=== PATIENT | male | born 1960 | race Caucasian/White ===

== ENCOUNTER 2016-08-17 08:46 | Emergency (ER) | payer MEDICAID ==
[~2016-08-17] VITALS: Ht 165.1 cm; Wt 51.0 kg
[~2016-08-17 08:46] MED LIST: ASPI-664 PO; ATOR20TA38 PO; CARV3.1260 PO; CLOP75TA27 PO; FAMO-95 PO; LISI2.5T59 PO; NIT4 SL; ONDA4TAB35 PO; TRAM50TA2 PO
[2016-08-17 08:51] VITALS: Ht 165.1 cm; Wt 51.0 kg
[2016-08-17] MEDS ORDERED: KETOROLAC 30 MG INJ IM STA (08:59)
--- NOTE | 2016-08-17 09:47 | RADRPT ---
PROCEDURE: XR Lumbar Spine. CLINICAL INDICATION: Low back pain. TECHNIQUE: Three views of the lumbar spine are available for review COMPARISON: None available FINDINGS: There is straightening of the normal lumbar lordosis. Moderate severe, which compression fractures noted at the L1 vertebral body more pronounced anteriorly, which is age indeterminate. The remainin g osseous structures appear demineralized. There is very low grade depression of the superior endpl ate of L3, also age indeterminate. Endplate productive changes seen throughout the lumbar spine con sistent with spondylosis. Mild disk space narrowing is seen at L4-L5 and grade 1 degenerative anter olisthesis. Mild bilateral SI joint arthrosis. The paraspinal soft tissues are grossly within normal limits. Atherosclerotic vascular calcific IMPRESSION: 1. Age indeterminate, moderate to severe compression fracture of L1. 2. Mild multilevel degenerative disk disease most pronounced at L4-5 noting mild disk space narrowi ng and grade 1 degenerative anterolisthesis. RPTAT: PP .Adolph Degroot MD, MD Date Time Electronically viewed and signed by .Adolph Degroot MD, on 08/17/2016 09:47 .d/
--- NOTE | 2016-08-17 09:52 | ERD ---
ER Documentation Chief Complaint Date/Time DATE: 08/17/16 TIME: 09:48 Chief Complaint Complains of lower back pain after a fall HPI Patient is a 55-year-old male who states that 2 days ago he had a mechanical fall landing on his lower back and since then he has had lower back pain. Patient was walking down stairs when he slipped and landed on his lower back. Pain is mild to moderate throbbing nonradiating. He denies any numbness or tingling, or bowel or bladder incontinence. He has no urinary symptoms. He is ambulatory. He denies any head injury. He denies any preceding chest pain, dizziness, headache, or loss of balance. ROS All systems reviewed and are negative except as per history of present illness. Medications Home Meds Active Scripts Hydrocodone/Acetaminophen ([place] 5-325 Tablet) 1 Each Tablet, 1 TAB PO Q6H Y for PAIN, #20 TAB Prov:RAÚL ALBERT PA-C 08/17/16 Ibuprofen* (Motrin*) 600 Mg Tab, 600 MG PO Q6, #30 TAB Prov:RAÚL ALBERT PA-C 08/17/16 Famotidine* (Pepcid* AC) 20 Mg Tab, 20 MG PO BID for 30 Days, 6 Refills Prov:MOISES LITTLE S. 10/13/14 Aspirin* (Aspirin* EC) 81 Mg Tabec, 81 MG PO DAILY for 30 Days Prov:MOISES LITTLE S. 09/27/14 Nitroglycerin* (Nitrostat*) 25 Tab Subl, 1 TAB SL Q5M Y for CHEST PAIN for 30 Days Prov:MOISES LITTLE S. 09/27/14 Ondansetron Hcl* (Zofran* ODT) 4 mg -ODT Tab.disper, 4 MG PO Q4H Y for NAUSEA AND OR VOMITING, #20 TAB Prov:BENIGNO DE ANDA SImtiaz 09/25/14 Tramadol HCl (Tramadol HCl) 50 Mg Tab, 50 MG PO Q6 Y for PAIN, #20 TAB Prov:BENIGNO DE ANDA. 09/25/14 Reported Medications Lisinopril* (Lisinopril*) 2.5 Mg Tablet, 2.5 MG PO DAILY, TAB 10/08/14 Clopidogrel Bisulfate (Clopidogrel) 75 Mg Tablet, 75 MG PO DAILY, TAB 09/25/14 Atorvastatin Calcium* (Atorvastatin Calcium*) 20 Mg Tablet, 20 MG PO HS, TAB 09/25/14 Carvedilol* (Carvedilol*) 3.125 Mg Tablet, 3.125 MG PO BID, TAB 09/25/14 Allergies Allergies: Coded Allergies: No Known Allergy (Unverified , 09/26/14) PMhx/Soc History of Surgery: No Anesthesia Reaction: No Hx Neurological Disorder: No Hx Respiratory Disorders: No Hx Cardiac Disorders: Yes (HTN HIGH CHOLESTEROL) Hx Psychiatric Problems: No Hx Miscellaneous Medical Probl: No Hx Alcohol Use: No Hx Substance Use: No Hx Tobacco Use: Yes Smoking Status: Never smoker FmHx Family History: No diabetes Physical Exam Vitals Vital Signs Date Time Temp Pulse Resp B/P Pulse Ox O2 Delivery O2 Flow Rate FiO2 08/17/16 08:51 97.9 72 20 111/64 98 Physical Exam General: well developed, well nourished, alert, nontoxic, no distress Head: normocephalic, atraumatic Neck: Supple, nontender, no lymphadenopathy, no midline tenderness Respiratory: Clear to auscaultation bilaterally, speaks in full sentences, no use of accesory muscles or labored breathing, no rales, ronchi, or wheezing Cardiovascular: RRR, No murmurs GI: soft, non tender, non distended, negative murphys sign, negative mcburneys point tenderness, no cva tenderness bilaterally, no rebound or guarding Back:mild l1 midline tenderness, no step offs or bony abnormalities, sensation to light touch in tact, normal rotational passive motion, limited flexion and extension secondary to pain Results 24 hrs Current Medications Medications (Trade) Dose Ordered Sig/Reina Route PRN Reason Start Time Stop Time Status Last Admin Dose Admin Ketorolac Tromethamine (Toradol) 30 mg ONCE STAT IM 08/17/16 08:59 08/17/16 09:06 DC 08/17/16 09:19 Procedures/MDM Patient is a 55 who has back pain after fall. He is ambulatory without any limitations and neurovascularly intact. He has no saddle anesthesia or bowel or bladder incontinence. He was given Toradol here in the emergency room with improvement of his symptoms. X-ray showed compression fracture that was indeterminate of age and therefore CT scan was ordered and CT scan showed the following: Severe acute L1 vertebral body compression fracture with transverse fracture extending through the anterior and middle columns. There is mild retropulsion causing mild spinal canal stenosis. At this point I reevaluated the patient who declined any further pain medications. I reviewed this with my supervising physician who recommended I reviewed the case with neurosurgery and therefore neurosurgery was paged and I spoke to Dr. Hansen who also reviewed the CT scan and recommended MRI with inclusion of STIR sequence however MRI was unable to be performed secondary to patient who has a pacemaker. At this point I spoke again with Dr. Hansen who stated patient could be managed outpatient and recommended we place him in a lumbar brace, given pain medication and orthopedic outpatient follow-up. He also explained the patient should come back in 3-4 weeks for follow-up upright x-ray.He was given a lumbar brace for pain control and support per Dr Hansen. Patient was given copies of the CT report and I reviewed all the findings with him and he verbalized to me that he understands. He knows to return for any new or worsening symptoms including bowel or bladder incontinence, saddle anesthesia, or any other concerns. Recommended this patient follow up with her primary care doctor within 48 hours or return to the emergency room for any worsening of symptoms. However this time I do believe there is suitable for outpatient management. I answered all their questions and they agreed with the plan and were discharged home. Departure Diagnosis: Primary Impression: Compression fracture Condition: Serious RAÚL ALBERT PA-C Aug 17, 2016 09:52
--- NOTE | 2016-08-17 10:55 | RADRPT ---
PROCEDURE: CT Lumbar Spine without contrast. CLINICAL INDICATION: Status post fall. Lower back pain. TECHNIQUE: Noncontrast CT of the lumbar spine was performed with multiplanar reformatted images gen erated from the axial acquired data. The administered radiation dose was CTDI vol = 6.38 mGy, DLP = 203.1 mGy-cm. One or more of the following dose reduction techniques were used: Automated exposure control, Adjustment of the mA and/or kV according to patient size, or Use of iterative reconstructio n technique. COMPARISON: There are no similar studies submitted for comparison. FINDINGS: The osseous structures are demineralized. There is normal lumbar lordosis. There is a severe L1 vertebral body compression fracture transverse fracture extending through the a nterior and middle columns. There is associated sclerosis within this region due to compression. T here is mild retropulsion causing mild spinal canal stenosis. Otherwise vertebral body heights are maintained. There is no destructive osseous lesion. T11-T12: There is a 2 mm broad-based disk bulge and mild bilateral facet arthropathy without spinal canal or bilateral foraminal stenosis. T12-L1 : There is a 1 mm broad-based disk bulge without spinal canal stenosis. There is mild to mod erate bilateral foraminal stenosis. L1-L2 : There is a 1 mm broad-based disk bulge without spinal canal or bilateral foraminal stenosis. L2-L3 : There is a 3 mm broad-based disk bulge without spinal canal stenosis. There is mild bilater al foraminal stenosis. L3-L4 : There is a 2 mm broad-based disk bulge and mild by facet arthropathy and ligamentum flavum i nfolding without spinal canal stenosis. There is mild bilateral foraminal stenosis. L4-L5 : There is mild disk space narrowing. There is trace anterolisthesis with a broad-based disk bulge with moderate bilateral facet arthropathy without spinal canal stenosis. There is moderate ri ght with mild to moderate left foraminal stenosis. L5-S1 : There is moderate to severe disk space narrowing. There is a 4 mm circumferential disk oste ophyte complex and mild bilateral facet arthropathy without spinal canal stenosis. There is severe left with moderate right foraminal stenosis. The sacroiliac joints are intact. IMPRESSION: 1. Severe acute L1 vertebral body compression fracture with transverse fracture extending through t he anterior and middle columns. There is mild retropulsion causing mild spinal canal stenosis. 2. Multilevel degenerative changes most pronounced at L5-S1 where there is a circumferential disk os teophyte complex with severe left and moderate right foraminal stenosis. 3. The osseous structures are demineralized. Correlate with bone densitometry. Further findings as detailed above. RPTAT: PP .Fabian Donovan MD, Date Time Electronically viewed and signed by .Fabian Donovan MD, on 08/17/2016 10:55 .F/
[2016-08-17] MEDS ORDERED: IBUP-1542 PO (12:14)
[2016-08-17] MEDS ORDERED: HYDR-906 PO (12:14)
== END 2016-08-17 12:50 | disposition home or self-care (01) ==
LOC: FTE 08:46
DX: S32.010A Wedge compression fracture of first lumbar vertebra, initial encounter for closed fracture (principal); I10 Essential (primary) hypertension; W01.0XXA Fall on same level from slipping, tripping and stumbling without subsequent striking against object, initial encounter; Y92.9 Unspecified place or not applicable; Z79.82 Long term (current) use of aspirin
CPT/HCPCS: 72100; 72131; 96372; J1885; Z7502